=== PATIENT | male | born 1980 | race Hispanic/Latino ===

== ENCOUNTER 2021-02-12 17:34 | Emergency (ER) | payer MEDICARE ==
--- NOTE | 2021-02-12 17:54 | Emergency Department Report ---
ED Psych HPI - General Stated Complaint: CESIA EVAL Time Seen by Provider: 02/12/21 17:43 Source: patient, police - History of Present Illness Initial Comments: Patient is 40 years old male with history of bipolar, schizoaffective disorder and schizophrenia. Patient also had history of drug abuse medically methamphetamine. Patient brought to the emergency room by police for evaluation of altered mental status. Patient was seen here yesterday and he ran away in police was contacted so they brought him back for evaluation. Patient is very hyperverbal, pressured speech. Patient is anxious. Patient stated that he was using methamphetamine the night before but he had a good sleep last night and he is feeling better now. Patient currently denying any suicidal or homicidal ideation. Patient also denied any visual or auditory hallucination. MD Complaint: altered mental status - Related Data Home Medications Medication Instructions Recorded Confirmed Last Taken Mirtazapine [Remeron] 02/12/21 Unknown Sertraline [Zoloft] 25 mg PO QDAY 02/12/21 02/12/21 Unknown Venlafaxine [Effexor] 02/12/21 Unknown Allergies Allergy/AdvReac Type Severity Reaction Status Date / Time aripiprazole [From Abilify] Allergy Anaphylaxis Verified 02/12/21 17:57 chlorpromazine Allergy Anaphylaxis Verified 02/12/21 17:57 [From Thorazine] haloperidol [From Haldol] Allergy Anaphylaxis Verified 02/12/21 17:57 ketorolac [From Toradol] Allergy Anaphylaxis Verified 02/12/21 17:57 shellfish derived Allergy Anaphylaxis Verified 02/12/21 17:57 ED Review of Systems ROS: Stated complaint: MH EVAL Other details as noted in HPI Comment: All other systems reviewed and negative Constitutional: denies: chills, fever Respiratory: denies: cough, shortness of breath, SOB with exertion, SOB at rest Cardiovascular: denies: chest pain, palpitations Gastrointestinal: denies: abdominal pain, nausea, vomiting Neurological: denies: headache, weakness, numbness, paresthesias, confusion, abnormal gait Psychiatric: anxiety, other (Acute psychosis.) ED Past Medical Hx - Past Medical History Hx Psychiatric Treatment: Yes (bipolar disorder with psychotic features, schizoaffective disorder, ADHD) Hx Asthma: Yes Additional medical history: bipolar/ schitozophrenia, poly substance abuse, spinal bifida, degenerative disc disease - Surgical History Additional Surgical History: surgery for spina bifida at age of 8 - Social History Smoking Status: Current Every Day Smoker (1 pack per day) Substance Use Type: Alcohol, Methamphetamines - Medications Home Medications: Home Medications Medication Instructions Recorded Confirmed Last Taken Type Mirtazapine [Remeron] 02/12/21 Unknown History Sertraline [Zoloft] 25 mg PO QDAY 02/12/21 02/12/21 Unknown History Venlafaxine [Effexor] 02/12/21 Unknown History ED Physical Exam - General General appearance: alert, anxious, other (Agitated.) - Head Head exam: Present: atraumatic, normocephalic, normal inspection - Eye Eye exam: Present: normal appearance, PERRL - ENT ENT exam: Present: normal exam, normal orophraynx, mucous membranes moist - Neck Neck exam: Present: normal inspection, full ROM. Absent: tenderness, meningismus - Respiratory Respiratory exam: Present: normal lung sounds bilaterally - Cardiovascular Cardiovascular Exam: Present: regular rate, normal rhythm, normal heart sounds - GI/Abdominal GI/Abdominal exam: Present: soft, normal bowel sounds. Absent: distended, tenderness, guarding, rebound, rigid, organomegaly, mass, bruit, pulsatile mass, hernia - Extremities Exam Extremities exam: Present: normal inspection, full ROM, normal capillary refill. Absent: tenderness - Back Exam Back exam: Present: normal inspection, full ROM. Absent: CVA tenderness (R), CVA tenderness (L) - Neurological Exam Neurological exam: Present: alert, altered, CN II-XII intact, normal gait, reflexes normal. Absent: motor sensory deficit - Psychiatric Psychiatric exam: Present: agitated, anxious, manic. Absent: homicidal ideation, suicidal ideation - Skin Skin exam: Present: warm, intact, normal color ED Course Vital Signs 02/12/21 02/12/21 17:57 18:01 Temperature 98.3 F Pulse Rate 110 H Respiratory 22 Rate Blood Pressure 126/93 O2 Sat by Pulse 95 Oximetry ED Medical Decision Making - Lab Data Result diagrams: 02/12/21 17:55 02/12/21 17:55 - Medical Decision Making Patient is 40 years old male with history of bipolar, schizoaffective disorder and schizophrenia. Patient also had history of drug abuse medically methamphetamine. Patient brought to the emergency room by police for evaluation of altered mental status. Patient was seen here yesterday and he ran away in police was contacted so they brought him back for evaluation. Patient is very hyperverbal, pressured speech. Patient is anxious. Patient stated that he was using methamphetamine the night before but he had a good sleep last night and he is feeling better now. Patient currently denying any suicidal or homicidal ideation. Patient also denied any visual or auditory hallucination. Labs reviewed and is unremarkable except for methamphetamine. Patient has been evaluated our psychiatric team and advised to discharge patient home and follow- up as an outpatient. Patient is currently denying any suicidal or homicidal ideation. No visual or auditory hallucination. Patient is medically and psychiatrically stable for discharge. Critical care attestation.: If time is entered above; I have spent that time in minutes in the direct care of this critically ill patient, excluding procedure time. ED Disposition Clinical Impression: Methamphetamine abuse Disposition: HOME / SELF CARE / HOMELESS Is pt being admited?: No Condition: Stable Instructions: Amphetamines Use Disorder Referrals: PRIMARY CARE, [Primary Care Provider] - 3-5 Days
[2021-02-12 18:08] LABS: Basophils # (Auto) 0.1 K/mm3 (0.0-0.1); Basophils % (Auto) 0.6 % (0.0-1.8); Eosinophils # (Auto) 0.2 K/mm3 (0.0-0.4); Eosinophils % (Auto) 1.5 % (0.0-4.3); Hemoglobin 14.2 gm/dl (11.8-15.2); Lymphocytes # (Auto) 3.2 K/mm3 (1.2-5.4); Lymphocytes % (Auto) 31.3 % (13.4-35.0); Mean Corpuscular HGB Conc 35 % (32-34); Mean Corpuscular Volume 90 fl (84-94); Monocytes % (Auto) 9.9 % (0.0-7.3); Platelet Count 305 K/mm3 (140-440); Red Blood Count 4.56 M/mm3 (3.65-5.03); Red Cell Distribution Width 13.3 % (13.2-15.2)
[2021-02-12 18:10] VITALS: BP 126/93
[2021-02-12 18:27] LABS: BUN/Creatinine Ratio 30; Blood Urea Nitrogen 27 mg/dL (9-20); Calcium 9.1 mg/dL (8.4-10.2); Hemolysis Index 10
[2021-02-12 18:38] LABS: Benzodiazepines Screen,Urine Negative; Cocaine Screen,Urine Negative; Methadone Screen,Urine Negative; Opiate Screen,Urine Negative
[2021-02-12 18:40] LABS: Bilirubin,Urine NEG (Negative); Blood,Urine NEG (Negative); Color,Urine Yellow (Yellow); Mucus,Urine 2+ /HPF; Protein,Urine <15 mg/dL mg/dL (Negative)
[2021-02-12 18:53] LABS: Amphetamine Screen,Urine Positive; Cannabinoid Screen,Urine Negative
[2021-02-12 18:53] LABS: Albumin 4.4 g/dL (3.9-5); Bilirubin,Direct 0.2 mg/dL (0-0.2)
== END 2021-02-12 23:30 | disposition home or self-care (01) ==
LOC: ED 17:34
DX: F15.10 Other stimulant abuse, uncomplicated (principal); F25.0 Schizoaffective disorder, bipolar type; F90.9 Attention-deficit hyperactivity disorder, unspecified type; F19.10 Other psychoactive substance abuse, uncomplicated; J45.909 Unspecified asthma, uncomplicated; Z98.890 Other specified postprocedural states; F17.290 Nicotine dependence, other tobacco product, uncomplicated; Z88.6 Allergy status to analgesic agent; Z88.8 Allergy status to other drugs, medicaments and biological substances; Z91.013 Allergy to seafood
CPT/HCPCS: 36415; 80048; 80076; 80307; 80320; 81001; 85025; 99284; G0480

== ENCOUNTER 2021-02-14 21:52 | Emergency (ER) | payer MEDICARE ==
[2021-02-15 02:50] LABS: BUN/Creatinine Ratio 14; Basophils # (Auto) 0.1 K/mm3 (0.0-0.1); Basophils % (Auto) 0.5 % (0.0-1.8); Blood Urea Nitrogen 14 mg/dL (9-20); Eosinophils % (Auto) 0.2 % (0.0-4.3); Hematocrit 41.5 % (35.5-45.6); Hemoglobin 13.9 gm/dl (11.8-15.2); Hemolysis Index 15; Lymphocytes # (Auto) 2.7 K/mm3 (1.2-5.4); Lymphocytes % (Auto) 21.1 % (13.4-35.0); Mean Corpuscular HGB Conc 34 % (32-34); Mean Corpuscular Volume 91 fl (84-94); Monocytes # (Auto) 0.9 K/mm3 (0.0-0.8); Monocytes % (Auto) 7.5 % (0.0-7.3); Platelet Count 329 K/mm3 (140-440); Red Blood Count 4.57 M/mm3 (3.65-5.03); Red Cell Distribution Width 13.6 % (13.2-15.2)
[2021-02-15 03:14] LABS: Bilirubin,Urine NEG (Negative); Blood,Urine NEG (Negative); Color,Urine Yellow (Yellow); Mucus,Urine 2+ /HPF
[2021-02-15 03:23] LABS: Amphetamine Screen,Urine PRESUMPTIVE POSITIVE; Benzodiazepines Screen,Urine PRESUMPTIVE NEGATIVE; Cannabinoid Screen,Urine PRESUMPTIVE NEGATIVE; Cocaine Screen,Urine PRESUMPTIVE NEGATIVE; Methadone Screen,Urine PRESUMPTIVE NEGATIVE; Opiate Screen,Urine PRESUMPTIVE NEGATIVE
== END 2021-02-15 04:26 | disposition home or self-care (01) ==
LOC: ED 21:52
DX: Z02.79 Encounter for issue of other medical certificate (principal); Z53.21 Procedure and treatment not carried out due to patient leaving prior to being seen by health care provider
CPT/HCPCS: 36415; 80048; 80307; 80320; 81001; 85025; 87086; 99283; G0480